=== PATIENT | female | born 1945 | race Caucasian/White ===

== ENCOUNTER → 2017-09-06 | Outpatient (CLI) | payer MEDICARE, OTHER ==
[2016-03-05 12:09] VITALS: BP 156/79
[~2017-09-06] MED LIST: SIMV40TA3 PO
--- NOTE | 2017-09-06 13:26 | RAD ---
DATE: 09/06/17 EXAM: MAMMO DIAMANTE SCREENING BILATERAL HISTORY: Routine screening COMPARISON: 08/04/16 This study was interpreted with the benefit of Computerized Aided Detection (CAD). TECHNIQUE: Routine 2-D and 3-D CC and MLO views of both breasts are obtained FINDINGS: Breast Density: HETERO The breast parenchyma is heterogenously dense, which could reduce sensitivity of mammography. Breast parenchyma level C. No suspicious clustered microcalcifications, focal asymmetric densities or masses are seen. There are benign calcifications in the right breast . Skin and nipples are intact IMPRESSION: Benign findings BI-RADS CATEGORY: 2 BENIGN FINDING(S) RECOMMENDED FOLLOW-UP: 12M 12 MONTH FOLLOW-UP PQRS compliance statement: Patient information was entered into a reminder system with a target due date for the next mammogram. Mammography is a sensitive method for finding small breast cancers, but it does not detect them all and is not a substitute for careful clinical examination. A negative mammogram does not negate a clinically suspicious finding and should not result in delay in biopsying a clinically suspicious abnormality. "Our facility is accredited by the [employer] Mammography [employer]."
== END | disposition home or self-care (01) ==
LOC: MAMMO 08:13
PROVIDERS: ATTEND Family Medicine
DX: Z12.31 Encounter for screening mammogram for malignant neoplasm of breast (principal)
CPT/HCPCS: 77063; G0202; 77067

== ENCOUNTER → 2018-05-16 | Outpatient (CLI) | payer MEDICARE, OTHER ==
[2016-03-05 12:09] VITALS: BP 156/79
--- NOTE | 2018-05-18 09:15 | RAD ---
Bone densitometry scan, 05/16/2018: History: Postmenopausal osteoporosis The lumbar spine and right hip were examined utilizing DEXA technique. The bone mineral density in the lumbar spine as measured from the L1-L4 levels is 0.85 g/sq cm. This yields a T score of -2.8 compatible with osteoporosis. The lumbar spine T score on the previous study of 10/21/2015 was -2.6. The total T score at the right hip is -2.1 compatible with osteopenia. On the previous study of the right hip T score was -1.8. IMPRESSION: Osteoporosis in the lumbar spine and osteopenia at the right hip, both of which have worsened slightly since 10/21/2015.
== END | disposition home or self-care (01) ==
LOC: DXRAD 11:21
PROVIDERS: ATTEND Physician Assistant
DX: M81.0 Age-related osteoporosis without current pathological fracture (principal)
CPT/HCPCS: 77080

== ENCOUNTER → 2018-09-07 | Outpatient (CLI) | payer MEDICARE, OTHER ==
[2016-03-05 12:09] VITALS: BP 156/79
--- NOTE | 2018-09-11 13:56 | RAD ---
DATE: September 07, 2018 EXAM: MAMMO DIAMANTE SCREENING BILATERAL HISTORY: Screening study. COMPARISON: 2015 and 2017 This study was interpreted with the benefit of Computerized Aided Detection (CAD). 2-D digital mammographic views of both breasts were performed in the CC and MLO projections. 3-D digital tomosynthesis images of both breasts were performed in the CC and MLO projections and reviewed on a computer workstation. FINDINGS: Breast Density: HETERO The breast parenchyma is heterogenously dense, which could reduce sensitivity of mammography. Breast parenchyma level C.. There are no new dominant suspicious masses, suspicious microcalcifications or evidence of architectural distortion. Again seen is a nodule of the upper aspect of the left breast which is stable. IMPRESSION: No mammographic indicators for malignancy. BI-RADS CATEGORY: 2 BENIGN FINDING RECOMMENDED FOLLOW-UP: 12M 12 MONTH FOLLOW-UP PQRS compliance statement: Patient information was entered into a reminder system with a target due date September 08, 2019 for the next mammogram. Mammography is a sensitive method for finding small breast cancers, but it does not detect them all and is not a substitute for careful clinical examination. A negative mammogram does not negate a clinically suspicious finding and should not result in delay in biopsying a clinically suspicious abnormality. "Our facility is accredited by the [employer] Mammography [employer]." The patient's breast density may affect the ability of mammography to detect breast cancer. There are 4 categories of breast density, A, B, C and D. Breast density A means that most of the breast tissue is replaced with adipose tissue and therefore is not dense. Breast density B means that the breast tissue is mildly dense and scattered. Breast density C means that the breast tissue is heterogeneously dense. Breast density D means that the breast tissue is very dense. Breast densities especially C and D may decrease the sensitivity of mammography to detect breast cancer. Therefore, the patient may benefit from 3-D breast mammography (3D breast tomography) as a part of their screening mammogram. Insurance may or may not pay for this additional imaging. The patient's breast density based on today's mammogram is category C.
== END | disposition home or self-care (01) ==
LOC: MAMMO 09:01
PROVIDERS: ATTEND Family Medicine
DX: Z12.31 Encounter for screening mammogram for malignant neoplasm of breast (principal)
CPT/HCPCS: 77063; 77067

== ENCOUNTER → 2019-09-11 | Outpatient (CLI) | payer MEDICARE, OTHER ==
[2016-03-05 12:09] VITALS: BP 156/79
--- NOTE | 2019-09-12 14:44 | RAD ---
DATE: 09/11/2019 EXAM: MAMMO DIAMANTE SCREENING BILATERAL HISTORY: Routine evaluation COMPARISON: 08/04/2016 09/06/2017, 09/07/2018 mammographic exams This study was interpreted with the benefit of Computerized Aided Detection (CAD). Breast Density: HETERO The breast parenchyma is heterogenously dense, which could reduce sensitivity of mammography. Breast parenchyma level C. FINDINGS: No suspicious calcifications, new masses, or distortion. IMPRESSION: Stable BI-RADS CATEGORY: 1 NEGATIVE RECOMMENDED FOLLOW-UP: 12M 12 MONTH FOLLOW-UP PQRS compliance statement: Patient information was entered into a reminder system with a target due date for the next mammogram. Mammography is a sensitive method for finding small breast cancers, but it does not detect them all and is not a substitute for careful clinical examination. A negative mammogram does not negate a clinically suspicious finding and should not result in delay in biopsying a clinically suspicious abnormality. "Our facility is accredited by the [employer] Mammography [employer]."
== END | disposition home or self-care (01) ==
LOC: MAMMO 07:54
PROVIDERS: ATTEND Family Medicine
DX: Z12.31 Encounter for screening mammogram for malignant neoplasm of breast (principal)
CPT/HCPCS: 77063; 77067

== ENCOUNTER → 2020-01-02 | Outpatient (CLI) | payer MEDICARE, OTHER ==
[2016-03-05 12:09] VITALS: BP 156/79
[~2020-01-02] MED LIST changes: +SIMV40TA18 PO; -SIMV40TA3 PO
--- NOTE | 2020-01-02 18:38 | RAD ---
EXAM: CHEST PA LATERAL INDICATION: Cough with deep inspiration for 2 days.. TECHNIQUE: PA and lateral views COMPARISON: None FINDINGS: The heart size is normal. The great vessels appear unremarkable. There is no hilar or mediastinal mass. The lungs are clear. There is no pleural effusion or pneumothorax. There are no significant osseous abnormalities. IMPRESSION: No active cardiopulmonary disease. Electronically signed by: Francisco Abrams MD (01/02/2020 4:47 PM) [facility]
== END | disposition home or self-care (01) ==
LOC: RAD 16:28
PROVIDERS: ATTEND Family Medicine
DX: R05 Cough (principal)
CPT/HCPCS: 71046

== ENCOUNTER → 2020-09-12 | Outpatient (CLI) | payer MEDICARE, OTHER ==
[2016-03-05 12:09] VITALS: BP 156/79
--- NOTE | 2020-09-12 12:35 | RAD ---
DATE: 09/12/2020 8:05 AM EXAM: MAMMO DAIMANTE SCREENING BILATERAL HISTORY: screening COMPARISON: 09/06/2017, 09/07/2018 and 09/11/2019 Bilateral CC and MLO views of the breasts were performed. Bilateral breast tomosynthesis was performed in CC and MLO projections. This study was interpreted with the benefit of Computerized Aided Detection (CAD). FINDINGS: Breast Density: HETERO The breast parenchyma Is heterogeneously dense, which could reduce sensitivity of mammography. Breast parenchyma level C No suspicious masses, microcalcifications or architectural distortion is present to suggest malignancy in either breast. The visualized axillae are unremarkable. IMPRESSION: No mammographic evidence of malignancy. BI-RADS CATEGORY: 1 NEGATIVE RECOMMENDED FOLLOW-UP: 12M 12 MONTH FOLLOW-UP Annual screening mammography is recommended, unless clinically indicated sooner based on symptoms or change in physical exam. PQRS compliance statement: Patient information was entered into a reminder system with a target due date for the next mammogram. Mammography is a sensitive method for finding small breast cancers, but it does not detect them all and is not a substitute for careful clinical examination. A negative mammogram does not negate a clinically suspicious finding and should not result in delay in biopsying a clinically suspicious abnormality. "Our facility is accredited by the [employer] Mammography [employer]."
== END ==
LOC: MAMMO 07:56
PROVIDERS: ATTEND Family Medicine
DX: Z12.31 Encounter for screening mammogram for malignant neoplasm of breast (principal)
CPT/HCPCS: 77063; 77067

== ENCOUNTER → 2020-10-01 | Outpatient (CLI) | payer MEDICARE, OTHER ==
[2016-03-05 12:09] VITALS: BP 156/79
--- NOTE | 2020-10-01 11:41 | RAD ---
EXAM: Maxillofacial bone CT without contrast. HISTORY: Sinusitis. TECHNIQUE: Computed tomographic images of the maxillofacial bones were obtained without contrast. *One or more of the following individualized dose reduction techniques were utilized for this examination: 1. Automated exposure control. 2. Adjustment of the mA and/or kV according to patient size. 3. Use of iterative reconstruction technique. COMPARISON: None. FINDINGS: There is no sinus opacification or air-fluid level. There is attenuation of the ostiomeatal units. There is no significant nasal septal deviation. There is no sinus wall erosion or thickening. The orbits and mastoid air cells are unremarkable. 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 There are degenerative changes involving the visualized cervical spine. The visualized portions of the brain are unremarkable. IMPRESSION: No evidence of acute or chronic sinusitis. Electronically signed by: Pau Fernandez MD (10/01/2020 11:38 AM) [id number]
== END ==
LOC: CT 11:13
PROVIDERS: ATTEND Family Medicine
DX: J32.8 Other chronic sinusitis (principal); M47.812 Spondylosis without myelopathy or radiculopathy, cervical region
CPT/HCPCS: 70486

== ENCOUNTER → 2021-05-06 | Outpatient (CLI) | payer MEDICARE, OTHER ==
[2016-03-05 12:09] VITALS: BP 156/79
--- NOTE | 2021-05-06 12:08 | RAD ---
INDICATION: Screening for osteopenia/osteoporosis. Postmenopausal evaluation. COMPARISON: 05/16/2018 TECHNIQUE: Bone densitometry was performed through the lumbar spine and proximal femur. IMPRESSION: Lumbar Spine: BMD: 0.9 T-Score: -2.3 Range: Lower limits of osteopenic. Increased by 4 percent from baseline from 2007 Proximal Femur: BMD: 0.7 T-Score: -2.1 Range: Osteopenic. Decreased by 3 percent from 2011 comparison. World Health Organization Criteria for Bone Density: T-Score: > -1.0: Normal Range < -1.0 to -2.5: Osteopenic Range < -2.5: Osteoporotic Range Electronically signed by: North Lowe MD (05/06/2021 12:06 PM) [id number]
== END ==
LOC: DXRAD 11:28
PROVIDERS: ATTEND Family Medicine
DX: M85.89 Other specified disorders of bone density and structure, multiple sites (principal); M81.0 Age-related osteoporosis without current pathological fracture
CPT/HCPCS: 77080

== ENCOUNTER → 2021-09-14 | Outpatient (CLI) | payer MEDICARE, OTHER ==
[2016-03-05 12:09] VITALS: BP 156/79
--- NOTE | 2021-09-14 16:52 | RAD ---
Bilateral digital screening 2-D and 3-D (tomosynthesis) mammogram: Reason for examination: Routine screening. Comparison is made to previous mammograms dated 09/12/2020 and 09/11/2019. Bilateral mammograms in CC and oblique projections were obtained with 2-D imaging and 3-D tomosynthes is imaging and reviewed on the workstation. Interpretation was made with the benefit of CAD. Findings: Breast density: Category C. The breasts are heterogeneously dense, which may obscure small masses. There are no new suspicious masses, malignant appearing calcifications or architectural distortion. A gain seen is an oval circumscribed mass in the axillary tail region of the right breast and another i n the left upper outer quadrant. These have not changed significantly. Impression: No evidence of malignancy. ASSESSMENT: BI-RADS 2. Benign findings. Recommendations: Routine screening mammograms. This patient's information has been entered into a reminder system for the patient to be notified wit h the results of her examination and a target date for the next mammogram. Your patient's mammogram demonstrates that she has dense breast tissue (breast density category C or D), which could hide abnormalities, and if she has other risk factors for breast cancer that have bee n identified, she might benefit from supplemental screening tests that may be suggested by you as her ordering physician. Dense breast tissue, in and of itself, is a relatively common condition. Therefo re, this information is not provided to cause undue concern, but rather to raise your awareness and t o promote discussion with your patient regarding the presence of other risk factors, in addition to d ense breast tissue. Electronically signed by: Amy Caballero MD (09/14/2021 4:49 PM) [id number]
== END ==
LOC: MAMMO 09:54
PROVIDERS: ATTEND Family Medicine
DX: Z12.31 Encounter for screening mammogram for malignant neoplasm of breast (principal); N63.10 Unspecified lump in the right breast, unspecified quadrant; N63.21 Unspecified lump in the left breast, upper outer quadrant
CPT/HCPCS: 77063; 77067